=== PATIENT | female | born 1995 | race Caucasian/White ===

== ENCOUNTER 2024-01-02 11:08 | Emergency (ER) | payer OTHER, SELFPAY ==
[2024-01-02 11:23] VITALS: BP 122/64
--- NOTE | 2024-01-02 11:34 | ED.GENMED ---
History of Present Illness
General
Chief Complaint: Foreign Body Ingestion
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
Time Seen by Provider: 01/02/24 11:12
Travel History
Have you had any contact with someone who has COVID-19?: No
Do you have any symptoms of coronavirus? Fever > 100 degrees, chills, cough, shortness of breath, sore throat, loss of taste or smell, muscle aches, or headache?: No
History of Present Illness
History of Present Illness:
28-year-old female presenting the emergency department from [facility] for evaluation after she was found around other inmates and had vials of fentanyl confiscated. It was unclear as to if the patient herself had any of the
drugs or paraphernalia on her. She was sent to the emergency department to be searched for possible drug related paraphernalia or drugs themselves.
Past History
Past History
ED Past Medical History: None
ED Past Surgical History: None
Social History
Tobacco: Former smoker
Alcohol: None
Drug: Former user (Benzodiazepines and methamphetamine)
Personal: Single
Living: [facility]
Review of Systems
Review of Systems
All Other Systems: ROS reviewed and negative except as documented in HPI and ROS
Phy Exam
Physical Exam
Physical Exam:
GENERAL: Alert , in no apparent distress
EYE: conjunctiva clear
Head: Normocephalic atraumatic
NECK: Supple,
ENT: mmm.
LUNGS: no acute respiratory distress
Pelvic exam chaperoned by ED JOVITA Pulido: No foreign bodies visualized
Rectal exam: No foreign bodies appreciated within the rectum. Chaperoned by ED JOVITA Pulido
NEUROLOGICAL: Alert and oriented
SKIN: Warm and dry, skin intact.
MUSCULOSKELETAL: well perfused.
PSYCH: Normal and appropriate interaction.
Scores
Heart Failure Risk
Heart Failure Risk Score: Not Applicable
Heart Score for Chest Pain Patients
STEMI patient?: Not applicable
Withdrawal Assessment of Alcohol
Withdrawal Assessment Completed?: Not applicable
Course
Vital Signs
Initial and Last Documented VS:
Initial Vital Signs
Temp Pulse Resp BP Pulse Ox
98.4 F 85 16 122/64 98
01/02/24 11:23 01/02/24 11:23 01/02/24 11:23 01/02/24 11:23 01/02/24 11:23
Last Documented Vital Signs
Temp Pulse Resp BP Pulse Ox
98.4 F 85 16 122/64 98
01/02/24 11:23 01/02/24 11:23 01/02/24 11:23 01/02/24 11:23 01/02/24 11:23
MDM/Problems Addressed
MDM/Problems Addressed:
28-year-old female present emergency department for evaluation of possible foreign body within the vaginal area or rectum search did not reveal any paraphernalia or drugs. Patient is medically stable for incarceration.
*Pulse Oximetry
Patient hypoxic: no
*Critical Care Note
Total Time (30-74mins, 75-104mins- exclusive of procedures): Not Applicable
ED Attending Note
-
Portions of this chart may have been created with voice recognition software.� Occasional wrong word or��sound alike� substitutions may have occurred due to the inherent limitations of voice recognition software.
Discharge Plan
Departure
Patient Disposition: Home (Routine Discharge)
Date of Disposition: 01/02/24
Time of Disposition: 11:34
Patient with high blood pressure during this ER visit?: No
Discharge Problem:
Medical clearance for incarceration
Instructions: Swallowed Objects, Adult (DC)
Referrals:
[facility] [Family Provider] -
Activity Restrictions/Additional Instructions:
Patient is medically cleared for incarceration
Interventions
Interventions:
*General Assessment Last Done: 01/02/24 11:23
*ED COVID-19 Vaccine History Last Done: 01/02/24 11:23
Discharge Date and Time
Print Language: CYPRIOT
== END 2024-01-02 11:42 | disposition home or self-care (01) ==
LOC: EMR 11:08
PROVIDERS: EMERGENCY PHYSICIAN Emergency Medicine
DX: Z03.823 Encounter for observation for suspected inserted (injected) foreign body ruled out (principal); Z02.79 Encounter for issue of other medical certificate; Z87.891 Personal history of nicotine dependence
CPT/HCPCS: 99282